=== PATIENT | female | born 1980 | race Native Hawaiian/Other Pacific Islander ===

== ENCOUNTER → 2016-04-14 | Outpatient (CLI) | payer OTHER ==
--- NOTE | 2016-04-14 10:18 | USB ---
Reason for exam: clinical finding. History: Benign US biopsy breast VAD LT of the left breast, September 11, 2015. Indicated problem(s): other indicated problem in the left breast. Physical Findings: Nurse Summary: 1.5cm lump left breast 11 o'clock (nurse mm). US Breast LT Left breast ultrasound including all four quadrants, the retroareolar region and axilla demonstrates a 1.2 x 0.66 x 0.91cm lobulated solid lesion at 1 o'clock for which a 6 months follow up is recommended, a 0.45 x 0.42 x 0.48cm lesion appears vertically oriented at 3 o'clock for which a 6 month follow up is recommended, a 0.51 x 0.38 x 0.45cm cystic lesion at 10 o'clock and a 3.57 x 1.02 x 2.10cm solid lesion at 11 o'clock versus 3.8 x 3.8 x 1.1cm previously corresponding to the biopsied fibroadenoma. These results were verbally communicated with the patient and result sheet given to the patient on 04/14/16. ASSESSMENT: Probably benign, BI-RAD 3 RECOMMENDATION: Ultrasound of the left breast in 6 months.
== END | disposition home or self-care (01) ==
LOC: RADUSWWP 09:04
PROVIDERS: ATTEND Surgery
DX: N60.02 Solitary cyst of left breast (principal)

== ENCOUNTER → 2016-10-18 | Outpatient (CLI) | payer OTHER ==
--- NOTE | 2016-10-19 11:04 | MM ---
Reason for exam: additional evaluation requested from prior study. Last mammogram was performed 1 year and 1 month ago. History: Benign US biopsy breast VAD LT of the left breast, September 11, 2015. Physical Findings: Nurse Summary: 1.5cm nodule in the left breast at 11 o'clock (nurse mj). MG 3D Diag Mammo W/Cad SUMI Bilateral CC and MLO view(s) were taken. Prior study comparison: September 11, 2015, left breast MG diagnostic mammo LT wo CAD. September 09, 2015, bilateral MG 3d diag mammo w/cad [facility]. The breast tissue is heterogeneously dense. This may lower the sensitivity of mammography. Finding: There is a 8 mm obscured round mass in the right breast. Previous mammotome biopsy in the left breast. There is a chronic nodularity in the left breast. correlate with benign biopsy proven adenoma and adjacent masses more prominent. These results were verbally communicated with the patient and result sheet given to the patient on 10/18/16. ASSESSMENT: Incomplete: need additional imaging evaluation, BI-RAD 0 RECOMMENDATION: Ultrasound of both breasts.
--- NOTE | 2016-10-19 11:15 | USB ---
Reason for exam: additional evaluation requested from abnormal screening. History: Benign US biopsy breast VAD LT of the left breast, September 11, 2015. US Breast Limited BILAT Right breast ultrasound demonstrates a 0.87 x 0.6 x 0.7cm mixed lesion at 1 o'clock for which an aspiration is recommended. Left breast ultrasound includes all four quadrants, the retroareolar region and axilla. Finding demonstrates a 0.8 x 0.6 x 0.6cm mixed lesion at 1 o'clock, a 0.8 x 0.9 x 1.2cm solid lesion at 3 o'clock, a 0.5 x 0.4 x 0.3cm lesion too small to characterize at 3 o'clock, a 0.5 x 0.5 x 0.7cm cystic lesion at 9 o'clock, a 1.1 x 0.6 x 1.2cm cystic lesion at 10 o'clock for which an aspiration is recommended, a 0.6 x 0.4 x 0.5cm cystic lesion at 10 o'clock and a 3.0 x 1.1 x 1.8cm solid lesion at 11 o'clock, prior biopsy. These results were verbally communicated with the patient and result sheet given to the patient on 10/18/16. ASSESSMENT: Suspicious, BI-RAD 4 RECOMMENDATION: Aspiration of both breasts. Called with mammographic findings and has scheduled an appointment for the patient for 10/25/[address] Valdez. Aspiration scheduled for 10/20/16 at 8:00. PRELIMINARY REPORT CALLED AND FAXED TO DR. VALDEZ ON 10/19/16 /TP.
== END | disposition home or self-care (01) ==
LOC: RADMAMWWP 14:56
PROVIDERS: ATTEND Surgery
DX: R92.8 Other abnormal and inconclusive findings on diagnostic imaging of breast (principal)
CPT/HCPCS: 76642; G0204; G0279

== ENCOUNTER → 2016-10-20 | Day surgery (SDC) | payer OTHER ==
[2016-10-20 07:34] VITALS: BP 120/79; PULSE 89; RESP 16; BMI 23.4
[2016-10-20 08:24] VITALS: TEMP 98.5
--- NOTE | 2016-10-20 10:38 | USB ---
EXAMINATION TYPE: US breast needle core LT DATE OF EXAM: 10/20/2016 HISTORY: Left breast mass, abnormal breast ultrasound. FINDINGS: Maximal barrier technique was utilized. The skin overlying a suitable path to the patient's mass at the 10:00 position of the left breast was localized with ultrasound and the overlying skin prepped and draped. Ultrasound was utilized with sterile technique. Lidocaine was used for local anesthesia. A skin ye was made with a scalpel. An 18-gauge needle was advanced under direct ultrasound guidance and core specimen obtained of the mass. Specimen submitted in formalin to Pathology. Following the procedure, hemostasis achieved and the patient is discharged in stable condition without complication. Impression: status POST ULTRASOUND GUIDED CORE BIOPSY OF 10:00 left breast MASS , PATHOLOGY IS PENDING. THIS PROCEDURE IS PERFORMED BY THE UNDERSIGNED. Pathology Results: Benign A. BREAST, LEFT, CORE BIOPSY: CONSISTENT WITH FIBROADENOMA. LIMITED SAMPLE. B. BREAST, RIGHT, CORE BIOPSY: FRAGMENT OF BENIGN BREAST WITH STROMAL FIBROSIS. LIMITED SAMPLE. Recommendation Follow up ultrasound of both breasts in 6 months. ROD
--- NOTE | 2016-10-20 10:42 | USB ---
EXAMINATION TYPE: US breast needle core RT DATE OF EXAM: 10/20/2016 HISTORY: Right breast mass. FINDINGS: Maximal barrier technique was utilized. The skin overlying a suitable path to the patient's right breast 1:00 mass was localized with ultrasound and the overlying skin prepped and draped. Ultrasound was utilized with sterile technique. Lidocaine was used for local anesthesia. A skin ye was made with a scalpel. An 18-gauge needle was advanced under direct ultrasound guidance and core specimen obtained of the mass. Specimen submitted in formalin to Pathology. Following the procedure, hemostasis achieved and the patient is discharged in stable condition without complication. Impression: status POST ULTRASOUND GUIDED CORE BIOPSY OF 1:00 right breast MASS , PATHOLOGY IS PENDING. THIS PROCEDURE IS PERFORMED BY THE UNDERSIGNED. Pathology Results: Benign A. BREAST, LEFT, CORE BIOPSY: CONSISTENT WITH FIBROADENOMA. LIMITED SAMPLE. B. BREAST, RIGHT, CORE BIOPSY: FRAGMENT OF BENIGN BREAST WITH STROMAL FIBROSIS. LIMITED SAMPLE. Recommendation Follow up ultrasound of both breasts in 6 months. ROD
== END ==
LOC: RADUSWWP 07:06
PROVIDERS: ATTEND Surgery
DX: N60.31 Fibrosclerosis of right breast (principal); N63 Unspecified lump in breast; R92.8 Other abnormal and inconclusive findings on diagnostic imaging of breast
CPT/HCPCS: 88305; 19083; 19084; J2001

== ENCOUNTER → 2018-09-07 | Outpatient (CLI) | payer BC ==
[2018-09-07 09:26] LABS: Basophils % (A) 0 %; Eosinophils % (A) 1 %; HCT 40.7 % (34.0-46.0); HGB 13.2 gm/dL (11.4-16.0); Lymphocytes # (A) 1.8 k/uL (1.0-4.8); Lymphocytes % (A) 29 %; MCH 28.4 pg (25.0-35.0); MCHC 32.5 g/dL (31.0-37.0); MCV 87.2 fL (80.0-100.0); Mean Platelet Volume 7.5; Monocytes # (A) 0.3 k/uL (0-1.0); Monocytes % (A) 5 %; Neutrophils % (A) 64 %; Platelet Count 293 k/uL (150-450); RBC 4.67 m/uL (3.80-5.40); WBC 6.2 k/uL (3.8-10.6)
[2018-09-07 09:42] LABS: ALT 26 U/L (9-52); AST 23 U/L (14-36); African American GFR (CKD) >90 (>60 ml/min/1.73 sqM); Alkaline Phosphatase 47 U/L (38-126); Amylase 61 U/L (30-110); Anion Gap 11 mmol/L; Blood Urea Nitrogen 19 mg/dL (7-17); Calcium 9.9 mg/dL (8.4-10.2); Carbon Dioxide 26 mmol/L (22-30); Chloride 105 mmol/L (98-107); Glucose 110 mg/dL (74-99); Lipase 86 U/L (23-300); Potassium 4.2 mmol/L (3.5-5.1); Sodium 142 mmol/L (137-145); Total Bilirubin 0.4 mg/dL (0.2-1.3); Total Protein 8.2 g/dL (6.3-8.2)
--- NOTE | 2018-09-07 11:34 | CT ---
EXAMINATION TYPE: CT abdomen pelvis w con DATE OF EXAM: 09/07/2018 COMPARISON: None HISTORY: Lt lower quadrant pain CT DLP: 377.1 mGycm CONTRAST: CT scan of the abdomen and pelvis is performed with Oral Contrast and with IV Contrast, patient injec noel with 100 mL of Isovue 300. FINDINGS: LUNG BASES-: No visible nodule. No infiltrate. LIVER/GB: No calcified gallstones. No space occupying hepatic lesion. Biliary tree is of normal ca liber. There is mild hepatic steatosis. PANCREAS: No inflammation. No distinct mass. SPLEEN: No splenic enlargement. No lesion seen. ADRENALS: No nodule. No thickening. KIDNEYS/BLADDER: No hydronephrosis. No nephrolithiasis. No distinct renal mass. Urinary bladder g rossly unremarkable. BOWEL: Normal appendix. Normal bowel caliber. No inflammation. GENITAL ORGANS: Left ovarian cyst measuring 2.5 cm. Right ovary and uterus are grossly unremarkable. No free fluid seen. LYMPH NODES: No greater than 1cm abdominal or pelvic lymph nodes are appreciated. AORTA: No significant abnormality. OSSEOUS STRUCTURES: No significant abnormality is seen. OTHER: No significant additional abnormality is seen. IMPRESSION: 1. Small left ovarian cyst. Otherwise unremarkable. 2. Hepatic steatosis.
== END ==
LOC: RADCTMAIN 08:20
PROVIDERS: ATTEND Nurse Practitioner Family
DX: N83.202 Unspecified ovarian cyst, left side (principal); K76.0 Fatty (change of) liver, not elsewhere classified; R10.32 Left lower quadrant pain
CPT/HCPCS: 80053; 82150; 83690; 85025; 74177; 36415; Q9967

== ENCOUNTER → 2021-03-23 | Outpatient (CLI) | payer BC ==
--- NOTE | 2021-03-25 10:23 | MM ---
Reason for exam: screening (asymptomatic). Last mammogram was performed 4 years and 5 months ago. History: Benign US breast needle core RT of the right breast, October 20, 2016. Benign US breast needle core addl LT of the left breast, October 20, 2016. Benign US biopsy breast VAD LT of the left breast, September 11, 2015. Physical Findings: A clinical breast exam by your physician is recommended on an annual basis and results should be correlated with mammographic findings. MG Screening Mammo w CAD Bilateral CC and MLO view(s) were taken. Prior study comparison: October 18, 2016, bilateral MG 3d diag mammo w/cad [facility]. September 11, 2015, left breast MG diagnostic mammo LT wo CAD. The breast tissue is heterogeneously dense. This may lower the sensitivity of mammography. Finding: There is a 11 mm equal density (isodense) mass in the upper outer quadrant of the right breast. Previous mammotome biopsy in the left breast. There is a chronic nodularity bilaterally, stable. ASSESSMENT: Incomplete: need additional imaging evaluation, BI-RAD 0 RECOMMENDATION: Special view mammogram of the right breast. If lesion persists on supplemental views, image directed ultrasound is recommended. [facility] will attempt to contact patient to return for supplemental views and ultrasound if indicated.
== END | disposition home or self-care (01) ==
LOC: RADMAMWWP 14:07
PROVIDERS: ATTEND Obstetrics & Gynecology
DX: Z12.31 Encounter for screening mammogram for malignant neoplasm of breast (principal)
CPT/HCPCS: 77067

== ENCOUNTER → 2021-03-29 | Outpatient (CLI) | payer BC ==
--- NOTE | 2021-03-29 14:14 | MM ---
Reason for exam: additional evaluation requested from abnormal screening. Last mammogram was performed less than 1 month ago. History: Benign US breast needle core RT of the right breast, October 20, 2016. Benign US breast needle core addl LT of the left breast, October 20, 2016. Benign US biopsy breast VAD LT of the left breast, September 11, 2015. Physical Findings: Nurse did not find any significant physical abnormalities on exam. MG Work Up Mamm w CAD RT Spot compression CC and spot compression MLO view(s) were taken of the right breast. Prior study comparison: March 23, 2021, bilateral MG screening mammo w CAD. October 18, 2016, bilateral MG 3d diag mammo w/cad [facility]. The breast tissue is heterogeneously dense. This may lower the sensitivity of mammography. Finding: There is an intermediate concern, suspicious 7 mm equal density (isodense), circumscribed lobulated mass located 10 cm from the nipple in the upper outer quadrant, posterior position of the right breast. New finding since October 18, 2016 and March 23, 2021. These results were verbally communicated with the patient and result sheet given to the patient on 03/29/21. ASSESSMENT: Incomplete: need additional imaging evaluation, BI-RAD 0 RECOMMENDATION: Ultrasound of the right breast.
--- NOTE | 2021-03-29 14:18 | USB ---
Reason for exam: additional evaluation requested from abnormal screening. History: Benign US breast needle core RT of the right breast, October 20, 2016. Benign US breast needle core addl LT of the left breast, October 20, 2016. Benign US biopsy breast VAD LT of the left breast, September 11, 2015. US Breast Workup Limited RT Right limited breast ultrasound including focal area of concern, retroareolar and axilla demonstrates a 0.3 x 0.3 x 0.2cm oval, cystic cluster at 9 o'clock, a 0.7 x 0.7 x 0.5cm oval, cystic cluster at 10 o'clock, a 0.7 x 0.9 x 0.5cm oval, cluster, mixed lesion at 10 o'clock, biopsy recommended and a 1.3 x 1.5 x 0.6cm lymph node at the axilla. These results were verbally communicated with the patient and result sheet given to the patient on 03/29/21. ASSESSMENT: Suspicious, BI-RAD 4 RECOMMENDATION: Ultrasound core biopsy of the right breast. Called Dr. Perry's office with mammographic findings and has scheduled an appointment for the patient for 05/13/21 at 8:[address] Leach. Biopsy scheduled for 04/14/21 at 1:00. PRELIMINARY REPORT CALLED AND FAXED TO DR. LEACH ON 03/29/21.
== END | disposition home or self-care (01) ==
LOC: RADMAMWWP 09:06
PROVIDERS: ATTEND Obstetrics & Gynecology
DX: N63.11 Unspecified lump in the right breast, upper outer quadrant (principal); N60.11 Diffuse cystic mastopathy of right breast
CPT/HCPCS: 77065

== ENCOUNTER → 2021-04-14 | Day surgery (SDC) | payer BC ==
[2021-04-14 12:43] VITALS: RESP 16
--- NOTE | 2021-04-14 13:26 | USB ---
EXAMINATION TYPE: US biopsy breast VAD RT DATE OF EXAM: 04/14/2021 CLINICAL HISTORY: R92.8 ABNORMAL MAMMOGRAM. TECHNIQUE: Ultrasound guided core biopsy of right 10:00 breast. COMPARISON: NONE FINDINGS: The procedure of ultrasound guided core biopsy was explained to the patient. Benefits, alt ernatives, and risks were discussed. An informed consent was then obtained. The patient was placed in supine positioning for imaging and for the procedure. The overlying skin w as prepped and draped in usual sterile fashion. Lidocaine buffered with bicarbonate was used as anes thetic into the skin and subcutaneous tissue up to area of concern in the right 10:00 breast. Under ultrasound guidance, a 12-gauge vacuum assisted biopsy gun device was used to obtain [address]. Following this, a biopsy clip was left in lesion. Processed of procedural mammogram demonstra elieser appropriate clip placement. The patient tolerated the procedure well without any immediate complication. The patient was kept in the radiology department for short stay after the procedure and then discharged home in stable condi tion. IMPRESSION: Successful, uncomplicated ultrasound guided core biopsy of area of concern in the right 1 0:00 breast, full pathology results to follow.
--- NOTE | 2021-04-14 13:52 | MM ---
Reason for exam: additional evaluation requested from abnormal screening. Last mammogram was performed 1 month ago. History: Benign US breast needle core RT of the right breast, October 20, 2016. Benign US breast needle core addl LT of the left breast, October 20, 2016. Benign US biopsy breast VAD LT of the left breast, September 11, 2015. MG Diagnostic Mammo RT Wo CAD CC and MLO view(s) were taken of the right breast. Prior study comparison: March 29, 2021, right breast MG work up mamm w CAD RT. March 23, 2021, bilateral MG screening mammo w CAD. ASSESSMENT: Post procedure mammogram for marker placement RECOMMENDATION: Ultrasound of the right breast in 6 months. PENDING PATHOLOGY RESULTS.
[2021-04-14 14:35] VITALS: BP 145/83; PULSE 79; TEMP 98.1
== END ==
LOC: RADUSWWP 12:04
PROVIDERS: ATTEND Surgery
DX: R92.8 Other abnormal and inconclusive findings on diagnostic imaging of breast (principal)
CPT/HCPCS: 19083; 88305; 77065; A4648; J2001

== ENCOUNTER → 2021-11-18 | Outpatient (CLI) | payer BC ==
--- NOTE | 2021-11-19 12:25 | MM ---
Reason for Exam: Follow-up at short interval from prior study. Last screening mammogram was performed 8 month(s) ago. Patient History: Menarche at age 12. First Full-Term at age 29. 04/14/2021, Benign Core Biopsy on the right side. 10/20/2016, Benign Core Biopsy on the right side. 10/20/2016, Benign Core Biopsy on the left side. 09/11/2015, Benign Core Biopsy on the left side. Last menstrual period: 10/23/2021 Risk Values: Miriam 5 year model risk: 1.8%. NCI Lifetime model risk: 17.4%. Prior Study Comparison: 03/23/2021 Bilateral Screening Mammogram, [facility]. 03/29/2021 Right Diagnostic Mammogram, [facility]. 04/14/2021 Right Diagnostic Mammogram, [facility]. Tissue Density: Right: The breast tissue is heterogeneously dense. This may lower the sensitivity of mammography. Findings: Analyzed By CAD. Nodular asymmetric density central right cc view at a middle depth partially disperses on spot compression. No discrete correlate on the other views. Microclip posterior upper outer quadrant from biopsy 6 months ago. Otherwise, no significant change. Overall Assessment: Incomplete: need additional imaging evaluation, BI-RAD 0 Management: Diagnostic Breast Ultrasound of the right breast. Electronically signed and approved by: Jl Quarles M.D. Radiologist
--- NOTE | 2021-11-19 12:26 | USB ---
Reason for Exam: Follow-up at short interval from prior study. Patient History: Menarche at age 12. First Full-Term at age 29. 04/14/2021, Benign Core Biopsy on the right side. 10/20/2016, Benign Core Biopsy on the right side. 10/20/2016, Benign Core Biopsy on the left side. 09/11/2015, Benign Core Biopsy on the left side. Risk Values: Miriam 5 year model risk: 1.8%. NCI Lifetime model risk: 17.4%. Prior Study Comparison: 03/23/2021 Bilateral Screening Mammogram, [facility]. 03/29/2021 Right Diagnostic Mammogram, [facility]. 04/14/2021 Right Diagnostic Mammogram, [facility]. Findings: The whole breast of the right breast, the axilla of the right breast and the retroareolar of the right breast were scanned. Total right breast ultrasound was performed including scanning of the subareolar region and axilla. Dense breast tissues are present throughout. At the 12:00 position, 5 cm from the nipple, there is a round 6 x 5 x 5 mm hypoechoic structure, possible debris-filled cyst for which six-month follow-up is recommended. At the 10:00 position, there is a lobulated and septated lesion with posterior through transmission measuring 8 x 7 x 8 mm. This likely corresponds to the previously biopsied lesion, previously measuring 8 x 6 x 4 mm. Precautionary follow up recommended given slight increase in size. No other solid or cystic lesion or axillary lymphadenopathy. Overall Assessment: Probably benign, BI-RAD 3 Management: Diagnostic Mammogram of both breasts in 6 months. - Six-month follow-up right breast ultrasound for the 10:00 and 12:00 areas. The 10:00 area was recently biopsied but is minimally larger now. -Patient should continue monthly self breast exams. Electronically signed and approved by: Jl Quarles M.D. Radiologist
== END | disposition home or self-care (01) ==
LOC: RADMAMWWP 12:58
PROVIDERS: ATTEND Surgery
DX: R92.8 Other abnormal and inconclusive findings on diagnostic imaging of breast (principal); Z98.890 Other specified postprocedural states
CPT/HCPCS: 77065

== ENCOUNTER → 2022-06-27 | Outpatient (CLI) | payer BC ==
--- NOTE | 2022-06-27 09:13 | MM ---
Reason for Exam: Additional evaluation requested from prior study. Last mammogram was performed 1 year(s) and 3 month(s) ago. Patient History: Menarche at age 12. First Full-Term at age 29. Premenopausal. Patient has history of breast feeding. 04/14/2021, Benign Core Biopsy on the right side. 10/20/2016, Benign Core Biopsy on the right side. 10/20/2016, Benign Core Biopsy on the left side. 09/11/2015, Benign Core Biopsy on the left side. Risk Values: Miriam 5 year model risk: 1.8%. NCI Lifetime model risk: 17.4%. Prior Study Comparison: 09/11/2015 Left Diagnostic Mammogram, [facility]. 10/18/2016 Bilateral Diagnostic Mammogram, [facility]. 03/23/2021 Bilateral Screening Mammogram, [facility]. 03/29/2021 Right Diagnostic Mammogram, [facility]. 04/14/2021 Right Diagnostic Mammogram, [facility]. 11/18/2021 Right MG diagnostic mammo RT w CAD, [facility]. Tissue Density: The breast tissue is heterogeneously dense. This may lower the sensitivity of mammography. Findings: Analyzed By CAD. Chronic nodularity bilaterally. Prior biopsies. No suspicious calcifications or masses. Overall Assessment: Benign, BI-RAD 2 Management: Screening Mammogram of both breasts in 1 year. A clinical breast exam by your physician is recommended on an annual basis and results should be correlated with mammographic findings. This exam should not preclude additional follow-up of suspicious palpable abnormalities. Results were given to the patient verbally at the time of exam. Electronically signed and approved by: Fernando Roman M.D. Radiologis
== END | disposition home or self-care (01) ==
LOC: RADMAMWWP 08:21
PROVIDERS: ATTEND Surgery
DX: R92.8 Other abnormal and inconclusive findings on diagnostic imaging of breast (principal)
CPT/HCPCS: 77062; 77066

== ENCOUNTER → 2023-07-18 | Outpatient (CLI) | payer BC ==
--- NOTE | 2023-07-20 18:58 | MM ---
Reason for Exam: Screening (asymptomatic). Last mammogram was performed 1 year(s) and 1 month(s) ago. Patient History: Menarche at age 12. First Full-Term at age 29. Premenopausal. Patient has history of breast feeding. 04/14/2021, Benign Core Biopsy on the right side. 10/20/2016, Benign Core Biopsy on the right side. 10/20/2016, Benign Core Biopsy on the left side. 09/11/2015, Benign Core Biopsy on the left side. Risk Values: Miriam 5 year model risk: 2.0%. NCI Lifetime model risk: 17.2%. Prior Study Comparison: 04/14/2021 Right Diagnostic Mammogram, [facility]. 11/18/2021 Right MG diagnostic mammo RT w CAD, [facility]. 06/27/2022 Bilateral MG 3D diag mammo w/cad SUMI, [facility]. Tissue Density: The breasts are heterogeneously dense, which may obscure small masses. Findings: Analyzed By CAD. Microclip right breast from prior biopsy. Chronic nodularity on the left also containing a microclip related to prior biopsy. There is no suspicious group of microcalcifications or new suspicious mass in either breast. Overall Assessment: Benign, BI-RAD 2 Management: Screening Mammogram of both breasts in 1 year. . Patient should continue monthly self-breast exams. A clinical breast exam by your physician is recommended on an annual basis. This exam should not preclude additional follow-up of suspicious palpable abnormalities. Note on Miriam scores and lifetime risk: 1. A Miriam score greater than 3% is considered moderate risk. If this is the case, consider specialist referral to assess eligibility for a risk reducing agent. 2. If overall lifetime risk for the development of breast cancer is 20% or higher, the patient may qualify for future screening with alternating mammogram and breast MRI. Electronically signed and approved by: Jl Quarles M.D. Radiologist
== END | disposition home or self-care (01) ==
LOC: RADMAMWWP 15:48
PROVIDERS: ATTEND Obstetrics & Gynecology
DX: Z12.31 Encounter for screening mammogram for malignant neoplasm of breast (principal)
CPT/HCPCS: 77063; 77067

== ENCOUNTER → 2024-09-20 | Outpatient (CLI) | payer BC ==
--- NOTE | 2024-09-23 07:46 | MM ---
Reason for Exam: Screening (asymptomatic). Last mammogram was performed 1 year(s) and 2 month(s) ago. Patient History: Menarche at age 12. First Full-Term at age 29. Premenopausal. Patient has history of breast feeding. 04/14/2021, Benign Core Biopsy on the right side. 10/20/2016, Benign Core Biopsy on the right side. 10/20/2016, Benign Core Biopsy on the left side. 09/11/2015, Benign Core Biopsy on the left side. Risk Values: Miriam 5 year model risk: 2.3%. NCI Lifetime model risk: 16.7%. Prior Study Comparison: 11/18/2021 Right MG diagnostic mammo RT w CAD, [facility]. 06/27/2022 Bilateral MG 3D diag mammo w/cad SUMI, [facility]. 07/18/2023 Bilateral MG 3D screening mammo w/cad, [facility]. Tissue Density: The breasts are heterogeneously dense, which may obscure small masses. Findings: Analyzed By CAD. There is no suspicious group of microcalcifications or new suspicious mass in either breast. Overall Assessment: Benign, BI-RAD 2 Management: Screening Mammogram of both breasts in 1 year. . Patient should continue monthly self-breast exams. A clinical breast exam by your physician is recommended on an annual basis. This exam should not preclude additional follow-up of suspicious palpable abnormalities. Note on Miriam scores and lifetime risk: 1. A Miriam score greater than 3% is considered moderate risk. If this is the case, consider specialist referral to assess eligibility for a risk reducing agent. 2. If overall lifetime risk for the development of breast cancer is 20% or higher, the patient may qualify for future screening with alternating mammogram and breast MRI. [facility], , 09/23/2024 7:43 AM. Electronically signed and approved by: Fernando Roman M.D. Radiologis
== END | disposition home or self-care (01) ==
LOC: RADMAMWWP 15:57
PROVIDERS: ATTEND Obstetrics & Gynecology
DX: Z12.31 Encounter for screening mammogram for malignant neoplasm of breast (principal); R92.333 Mammographic heterogeneous density, bilateral breasts
CPT/HCPCS: 77063; 77067